=== PATIENT | female | born 2000 | race American Indian/Alaskan Native ===

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

== ENCOUNTER 2018-07-02 15:09 | Emergency (ER) | payer OTHER ==
[2018-07-02 15:23] VITALS: BP 117/78; PULSE 85; RESP 16; TEMP 97.1; O2SAT 98
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
== END 2018-07-02 16:23 | disposition home or self-care (01) ==
LOC: C.ER 15:09
DX: S20.219A Contusion of unspecified front wall of thorax, initial encounter (principal); S39.012A Strain of muscle, fascia and tendon of lower back, initial encounter; V89.2XXA Person injured in unspecified motor-vehicle accident, traffic, initial encounter